=== PATIENT | female | born 1990 | race Caucasian/White ===

== ENCOUNTER 2023-03-31 18:31 | Inpatient (IN) | payer OTHER ==
[2023-03-31] MEDS ORDERED: Oxytocin 30 units/NS 500 ML 500 ML ONE (18:53)
[2023-03-31] MEDS ORDERED: Lidocaine 1% (PF) 30 ML VIAL ONE (18:53)
[2023-03-31] MEDS ORDERED: Penicillin G Potassium 5 MILL.UNITS VIAL ONE (18:53)
[2023-03-31] MEDS ORDERED: hydrALAZINE 20 MG/ML VIAL SLOW IVP PRN ×2 (18:58→22:30)
[2023-03-31] MEDS ORDERED: Ondansetron PF 4 MG/2 ML Vial IVP PRN (18:58)
[2023-03-31] MEDS ORDERED: Promethazine HCl 25 MG/ML VIAL IM PRN (18:58)
[2023-03-31] MEDS ORDERED: Ibuprofen 800 MG TAB PO PRN (18:58)
[2023-03-31] MEDS ORDERED: Lidocaine 1% (PF) 30 ML VIAL SC PRN (18:58)
[2023-03-31] MEDS ORDERED: Misoprostol 200 MCG TAB PR PRN (18:58)
[2023-03-31] MEDS ORDERED: Methylergonovine 0.2 MG/ML VIAL IM PRN (18:58)
[2023-03-31] MEDS ORDERED: Carboprost 250 MCG/ML AMP IM PRN (18:58)
[2023-03-31] MEDS ORDERED: Tranexamic Acid 1,000 MG/10 ML VIAL IVP PRN (18:58)
[2023-03-31 19:00] VITALS: BMI 34.7
[2023-03-31] MEDS ORDERED: Oxytocin 30 units/NS 500 ML 500 ML IV SCH (19:00)
[2023-03-31] MEDS ORDERED: Penicillin G Potassium 5 MILL.UNITS in Sodium Chloride 0.9% 100 ML IVPB SCH (19:00)
[2023-03-31 19:30] LABS: Hematocrit 36.7 % (34.9-44.5); Hemoglobin 12.6 g/dL (12.0-15.5); Mean Corpuscular HGB CONC 34.3 g/dL (32.0-36.0); Mean Corpuscular Volume 87.4 fl (81.6-98.3); Mean Platelet Volume 10.9 fl (7.4-10.4); Platelet Count 202 10x3/uL (150-450); RBC Distribution Width 12.8 % (11.5-14.5); White Blood Cell (WBC) Count 15.3 10x3/uL (3.5-10.5)
[2023-03-31 20:07] LABS: Syphilis Antibody Nonreactive (Nonreactive); Syphilis Antibody Index 0.04 S/CO (<1.00 Non-Reactive)
[2023-03-31 20:08] LABS: HBSAg Index 0.18 S/CO (0-0.99); Hep B Surf Ag - L&D Non-Reactive S/CO (NonReactive)
[2023-03-31 20:22] LABS: HIV (1/2) Antibody/Antigen Non-Reactive (NonReactive); HIV 1/2 INDEX 0.18 S/CO (<1.00)
[2023-03-31] MEDS ORDERED: Boostrix 0.5 ML (Tdap) VIAL (>/=7 yrs of age) IM ONE (22:30)
[2023-03-31] MEDS ORDERED: Bisacodyl 10 MG SUPP PR PRN (22:30)
[2023-03-31] MEDS ORDERED: Milk Of Magnesia 30 ML UDCUP PO PRN (22:30)
[2023-03-31] MEDS ORDERED: HYDROcodone/Acetaminophen 5/325 mg Tablet PO PRN (22:30)
[2023-03-31] MEDS ORDERED: Preparation H Ointment 28 GM TUBE PR PRN (22:30)
[2023-03-31] MEDS ORDERED: Benzocaine-Menthol 82.5 ML CAN TOP PRN (22:30)
[2023-03-31] MEDS ORDERED: Docusate 100 MG CAP PO SCH (22:45)
[2023-03-31] MEDS ORDERED: Penicillin G 2.5 MILL.units 2.5 MILL.UNITS in Premix 1 BAG IVPB SCH (23:00)
[2023-04-01] MEDS: Ibuprofen 800 MG TAB PO SCH ×3 (05:21→21:17)
[2023-04-01] MEDS: Docusate 100 MG CAP PO SCH ×2 (08:36→21:17)
[2023-04-01] MEDS: Ferrous Sulfate 325 MG TAB PO SCH ×2 (08:36→15:14)
[2023-04-01 20:30] VITALS: BP 112/66; TEMP 97.5
== END 2023-04-01 23:30 | disposition home or self-care (01) | DRG 807 ==
LOC: CSHLD/OP 18:31 → CSHLD 18:58 → CSHPP 22:40
PROVIDERS: ADMIT Family Medicine; ATTEND Family Medicine
PROC: 10E0XZZ Delivery of Products of Conception, External Approach (ICD-10-PCS; principal; 2023-03-31)
DX: O42.02 Full-term premature rupture of membranes, onset of labor within 24 hours of rupture (principal); Z37.0 Single live birth; O99.824 Streptococcus B carrier state complicating childbirth; O69.81X0 Labor and delivery complicated by cord around neck, without compression, not applicable or unspecified; Z3A.37 37 weeks gestation of pregnancy
CPT/HCPCS: 85027; 86780; 87340; 87389; 99285; J2001; J2540; J2590; J3490